=== PATIENT | male | born 1955 | race Two or more races ===

== ENCOUNTER 2019-05-18 11:59 | Inpatient (IN) | payer OTHER ==
[2019-05-25] MEDS ORDERED: KOMBIGLYZE XR1 EAC2 PO (08:12)
[2019-05-25] MEDS ORDERED: VALSARTAN-HCTZ1 EAC4 PO (08:13)
[2019-05-25] MEDS ORDERED: CARDURA XL4 MG PO (08:13)
== END 2019-06-05 11:17 | disposition home or self-care (01) | DRG 708 ==
LOC: SURH 06-03 05:00 → O/R 06-03 05:00 → SURG 06-03 07:00 → SURH 06-03 12:59
PROVIDERS: ADMIT Urology
PROC: 07TC0ZZ Resection of Pelvis Lymphatic, Open Approach (ICD-10-PCS; 2019-06-03)
PROC: 0VT00ZZ Resection of Prostate, Open Approach (ICD-10-PCS; principal; 2019-06-03 08:30)
DX: C61 Malignant neoplasm of prostate (principal)

== ENCOUNTER 2019-12-29 07:09 | Outpatient (CLI) | payer OTHER ==
[~2019-12-29 07:09] MED LIST: CARDURA XL4 MG PO; KOMBIGLYZE XR1 EAC2 PO; VALSARTAN-HCTZ1 EAC4 PO
== END 2019-12-29 07:43 | disposition home or self-care (01) ==
LOC: LAB 07:09
PROVIDERS: ATTEND Urology
DX: C61 Malignant neoplasm of prostate (principal); N30.00 Acute cystitis without hematuria